=== PATIENT | female | born 1985 | race Caucasian/White ===

== ENCOUNTER → 2022-10-15 15:27 | Outpatient (CLI) | payer BC, SELFPAY ==
--- NOTE | 2022-10-15 | DI.US.S_ITS ---
PROCEDURE: US PELVIC COMPLETE INDICATIONS: PELVIC PAIN TECHNIQUE: Real-time scanning was performed of the pelvic organs, with image documentation. Additional endovaginal scanning was necessary due to incomplete visualization of the adnexal and endometrial structures by transabdominal scanning. COMPARISON: None. FINDINGS: Uterus: Uterus is anteverted and normal in size at 7.4 x 3.0 x 3.7 cm. The myometrium is homogeneous. The endometrium measures 5.0 mm combined thickness. Endocervical fluid. Ovaries: Right ovary is not visualized. Left ovary measures 3.0 x 1.9 x 2.6 cm with volume estimated at 7.8 cc. Less than 12 subcentimeter follicular cysts involving the left ovary. Other: No pathologic free abdominal or pelvic fluid. IMPRESSION: No source for pelvic pain identified. If pain persist with conservative management, consider cross-sectional imaging such as CT or MRI. We strive to produce accurate, complete, and clear reports of imaging services. To assist us in improving patient care, this report was composed using standard report templates and voice recognition software. Therefore, it may contain abnormal punctuation, insertions and/or omissions. Occasional wrong-word or sound-alike substitutions may occur. Though we review the report and make efforts to correct it, we do recommend that the report be read carefully in proper context to recognize any text inaccuracies. Dictated by: [place] [employer]ECTOR Interpreted: Dat Hernandez MD on 10/15/2022 at 16:00 Transcribed by: [email or web address] on 10/15/2022 at 16:02 Approved by: Dat Hernandez M.D. on 10/15/2022 at 16:49
== END ==
PROVIDERS: PCP Family Medicine; Referring Provider Family Medicine; Visit Provider Family Medicine
DX: R10.2 Pelvic and perineal pain (principal)
CPT/HCPCS: 76830; 76856; 93975